=== PATIENT | female | born 1955 | race Caucasian/White ===

== ENCOUNTER 2016-05-03 13:11 | Emergency (ER) | payer OTHER ==
[~2016-05-03 13:11] MED LIST: CIPRO 500MG TA500 MG PO; KEFLEX 250MG C250 MG PO; MELOXICAM15 MG PO; PRILOSEC 20MG C20 MG PO; SENOKOT8.6 MG PO
--- NOTE | 2016-05-03 17:58 | ED UPPER/LOWER EXTREMITY COMPL ---
History of Present Illness General Chief Complaint: Laceration Procedure Stated Complaint: L LEG LAC Source: patient Exam Limitations: no limitations Vital Signs & Intake/Output Vital Signs & Intake/Output Vital Signs Date Time Temp Pulse Resp B/P Pulse O2 O2 Flow FiO2 Ox Delivery Rate 05/03 1820 97 05/03 1818 96.5 55 18 158/79 97 Room Air 05/03 1316 98.4 53 20 158/89 97 Room Air Allergies Coded Allergies: NO KNOWN ALLERGIES (03/09/11) Reconcile Medications Amlodipine Besylate 5 MG TABLET 1 TAB PO DAILY BP (Reported) Aspirin (Ecotrin*) 81 MG TABLET.DR 1 TAB PO DAILY HEART/BLOOD (Reported) Furosemide 20 MG TABLET 1 TAB PO DAILY DIURETIC (Reported) Multivitamin (Multi-Day Vitamins) 1 EACH TABLET 1 TAB PO DAILY SUPPLEMENT ( Reported) Omeprazole 40 MG CAPSULE.DR 1 CAP PO BID GI (Reported) Oxybutynin Chloride (Unknown Strength) TABLET (Unknown Dose) UNKNOWN ( Reported) Paroxetine HCl 20 MG TABLET 1 TAB PO DAILY MENTAL HEALTH (Reported) Triage Note: PT PRESENTS TO ER C/O OF LAC TO LEFT RIVAS. PT STATES SHE GOT HIT IN THE RIVAS WITH THE CAR DOOR. BLEEDING CONTROLLED AT TRIAGE. PT HAS NO FEELING TO LEGS DUE TO NECK INJURY Triage Nurses Notes Reviewed? yes Onset: Abrupt Duration: hour(s):, constant Timing: recent history No Modifying Factors: none HPI: 60-year-old female comes into emergency room for further evaluation of laceration to left lower leg. Her prior to arrival while patient was getting out of the car. Last tetanus shot within the last couple years. Some associated bleeding. 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 Denies any other associated symptoms currently. Denies any pain. Past History Travel History Traveled to [place] past 21 day No Medical History Any Pertinent Medical History? 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 No Review of Systems Review of Systems Constitutional: Reports: no symptoms. EENTM: Reports: no symptoms. Respiratory: Reports: no symptoms. Cardiovascular: Reports: no symptoms. Gastrointestinal/Abdominal: Reports: no symptoms. Genitourinary: Reports: no symptoms. Musculoskeletal: Reports: no symptoms. Skin: Reports: see HPI. Neurological/Psychological: Reports: no symptoms. Hematologic/Endocrine: Reports: no symptoms. Immunological: Reports: no symptoms. All Other Systems: Reviewed and Negative Physical Exam Physical Exam General Appearance: well developed/nourished, mild distress Head: atraumatic Eyes: Bilateral: normal appearance. Ears, Nose, Throat: normal ENT inspection, hearing grossly normal Neck: normal inspection Cardiovascular/Respiratory: no respiratory distress Back: normal inspection Leg Left: 2 inch laceration left lower leg, jagged, gapping Knee Left: normal inspection Foot Left: normal inspection Neurologic/Tendon: no pulse deficit Skin: intact, normal color, warm/dry Lymphatic: no anterior cervical madelin Progress Differential Diagnosis: dislocation, DVT, fracture, gout, septic arthritis, sprain, tendon injury Plan of Care: Patient tolerated procedure well. Dressed with compression wrap. Return 10 days. Return if any other concerns. Departure Departure Disposition: HOME OR SELF CARE Condition: Stable Clinical Impression Primary Impression: Laceration of left lower leg Referrals: GRETA CHAVEZ,GAIL Sánchez (PCP/Family) Additional Instructions: Return in 10 days for suture removal. Watch for signs of infection such as redness bone discharge fever chills. Change dressing every other day. Bacitracin for the first 5-7 days. Dry dressing after that. Make sure you dry the wound after any type of showering. Do not shower for at least 2 days. Please go over all results of today's visit with your primary care doctor. Contact your primary care doctor to let them know you were here in the emergency room. There may be nonspecific findings which may not be related to your visit today here in the emergency room but may require further evaluation and chronic monitoring by your primary care doctor. If you had a laceration today the chance of foreign body always remains. You should follow-up with your primary care doctor for recheck in 3-5 days for a wound check. If you had an x-ray done there is a chance that a fracture could have been missed on initial read and you should follow-up with your primary care doctor for repeat x-rays if symptoms persist. If your blood pressure was elevated here in the emergency room please have rechecked by her primary care doctor within the next 48 hours by your primary care doctor. If you were prescribed a narcotic here in the emergency room or any type of controlled substances you're not allowed to drive while taking this medication or operate any type of heavy machinery. Narcotics can make you feel lightheaded dizziness nausea and can cause constipation. 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 Thank you for choosing [facility] emergency room. Please return to the emergency room immediately if you have any other concerns worsening of symptoms. Departure Forms: Customer Survey General Discharge Information Procedures Laceration/Wound Repair Progress: laceration left lower leg, 2-1/2 inches, jagged, irrigated with copious amounts of saline and Betadine, 3.0 nylon, 7 sutures placed, 1% lidocaine with epi use, patient tolerated procedure well,
[2016-05-03] MEDS ORDERED: AMLODIPINE BESYL5 M1 PO (18:01)
[2016-05-03] MEDS ORDERED: OMEPRAZOLE40 M1 PO (18:01)
[2016-05-03] MEDS ORDERED: FUROSEMIDE20 M1 PO (18:01)
[2016-05-03] MEDS ORDERED: ASPIRIN EC81 M1 PO (18:01)
[2016-05-03] MEDS ORDERED: OXYBUTYNIN CHLOR5 M2 (18:02)
[2016-05-03] MEDS ORDERED: PAROXETINE HCL20 M1 PO (18:02)
[2016-05-03] MEDS ORDERED: MULTI-DAY VITA1 EACH PO (18:03)
[2016-05-03 18:18] VITALS: BP 158/79
== END 2016-05-03 18:20 ==
LOC: ERH 13:11
DX: S81.812A Laceration without foreign body, left lower leg, initial encounter (principal); W22.09XA Striking against other stationary object, initial encounter

== ENCOUNTER 2016-05-13 12:22 | Emergency (ER) | payer OTHER ==
[~2016-05-13] VITALS: Ht 167.6 cm; Wt 79.4 kg
[~2016-05-13 12:22] MED LIST changes: +AMLODIPINE BESYL5 M1 PO; +ASPIRIN EC81 M1 PO; +FUROSEMIDE20 M1 PO; +MULTI-DAY VITA1 EACH PO; +OMEPRAZOLE40 M1 PO; +OXYBUTYNIN CHLOR5 M2; +PAROXETINE HCL20 M1 PO
[2016-05-13 12:33] VITALS: BP 132/78
--- NOTE | 2016-05-13 12:34 | ED ANIMAL BITE/WOUND CHECK ---
History of Present Illness General Chief Complaint: Suture Removal/Wound Recheck Stated Complaint: SUTURE REMOVAL Source: patient, old records Exam Limitations: no limitations Vital Signs & Intake/Output Vital Signs & Intake/Output Vital Signs Date Time Temp Pulse Resp B/P Pulse O2 O2 Flow FiO2 Ox Delivery Rate 05/13 1233 98.1 55 18 132/78 99 Room Air Allergies Coded Allergies: NO KNOWN ALLERGIES (03/09/11) Reconcile Medications Amlodipine Besylate 5 MG TABLET 1 TAB PO DAILY BP (Reported) Aspirin (Ecotrin*) 81 MG TABLET.DR 1 TAB PO DAILY HEART/BLOOD (Reported) Furosemide 20 MG TABLET 1 TAB PO DAILY DIURETIC (Reported) Multivitamin (Multi-Day Vitamins) 1 EACH TABLET 1 TAB PO DAILY SUPPLEMENT ( Reported) Omeprazole 40 MG CAPSULE.DR 1 CAP PO BID GI (Reported) Oxybutynin Chloride (Unknown Strength) TABLET (Unknown Dose) UNKNOWN ( Reported) Paroxetine HCl 20 MG TABLET 1 TAB PO DAILY MENTAL HEALTH (Reported) Triage Note: 60 Y/O FEMALE Triage Nurses Notes Reviewed? yes HPI: 60-year-old female 10 days after a laceration to the left lower leg. She states that there is some mild redness around the wound, she has been applying Neosporin to the area. She is concerned about slow healing in the area and she has had laceration before. There is no fever or significant discharge from the wound. She has no pain or she has neuropathy Past History Travel History Traveled to [place] past 21 day No Medical History Any Pertinent Medical History? 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 No Review of Systems Review of Systems Constitutional: Reports: see HPI. EENTM: Reports: no symptoms. Respiratory: Reports: no symptoms. Cardiovascular: Reports: no symptoms. GI: Reports: no symptoms. Genitourinary: Reports: no symptoms. Musculoskeletal: Reports: no symptoms. Skin: Reports: see HPI. Neurological/Psychological: Reports: no symptoms. Hematologic/Endocrine: Reports: no symptoms. Immunologic/Allergic: Reports: no symptoms. All Other Systems: Reviewed and Negative Physical Exam Physical Exam General Appearance: well developed/nourished Comments: Well-developed well-nourished no apparent distress. HEENT: Atraumatic, extraocular motion intact Neck: Supple, no lymphadenopathy Back: Nontender Respiratory: No respiratory distress Extremities: 1+ BLE edema, left anterior lower leg with a wound that is healing slowly. The skin edges had not quite healed yet. There is a small scab noted around the incision line and minimal erythema and swelling. Scant drainage on [place]. No tenderness. No abscess. Neuro: Alert and oriented x3 Psych: Mood affect normal, normal memory normal judgment. Skin: Warm and dry, no rash on exposed skin Progress Differential Diagnosis: abscess, cellulitis, joint infection, tenosysnovitis Plan of Care: The wound is not right to have all sutures removed at this time. Half the sutures were removed, bacitracin and Telfa dressing was then applied. Vijay wrap was applied. She will return in approximately 5 days for another wound check. Departure Departure Disposition: HOME OR SELF CARE Condition: Stable Clinical Impression Primary Impression: Visit for wound check Referrals: GRETA CHAVEZ,GAIL Sánchez (PCP/Family) Additional Instructions: Return in approximately 5 days for another wound check and removal of the remainder of your sutures. Watch for any signs of infection, redness, swelling, discharge, pain. Return with any concerns Departure Forms: Customer Survey General Discharge Information
== END 2016-05-13 12:37 ==
LOC: ERH 12:22
DX: S81.812A Laceration without foreign body, left lower leg, initial encounter (principal); X58.XXXA Exposure to other specified factors, initial encounter
CPT/HCPCS: 99281

== ENCOUNTER 2016-05-21 11:28 | Emergency (ER) | payer OTHER ==
[~2016-05-21] VITALS: Ht 167.6 cm; Wt 79.4 kg
[2016-05-21 12:02] VITALS: BP 118/70
--- NOTE | 2016-05-21 12:23 | ED SKIN/ALLERGY COMPLAINT ---
History of Present Illness General Chief Complaint: Suture Removal/Wound Recheck Stated Complaint: SUTURE REMOVAL Source: patient Exam Limitations: no limitations Vital Signs & Intake/Output Vital Signs & Intake/Output Vital Signs Date Time Temp Pulse Resp B/P Pulse O2 O2 Flow FiO2 Ox Delivery Rate 05/21 1202 98.1 84 18 118/70 99 Room Air Allergies Coded Allergies: NO KNOWN ALLERGIES (03/09/11) Reconcile Medications Amlodipine Besylate 5 MG TABLET 1 TAB PO DAILY BP (Reported) Aspirin (Ecotrin*) 81 MG TABLET.DR 1 TAB PO DAILY HEART/BLOOD (Reported) Furosemide 20 MG TABLET 1 TAB PO DAILY DIURETIC (Reported) Multivitamin (Multi-Day Vitamins) 1 EACH TABLET 1 TAB PO DAILY SUPPLEMENT ( Reported) Omeprazole 40 MG CAPSULE.DR 1 CAP PO BID GI (Reported) Oxybutynin Chloride (Unknown Strength) TABLET (Unknown Dose) UNKNOWN ( Reported) Paroxetine HCl 20 MG TABLET 1 TAB PO DAILY MENTAL HEALTH (Reported) Triage Note: HERE FOR SUTURE REMOVAL TO LEFT LOWER LEG, (4) Triage Nurses Notes Reviewed? yes HPI: THIS PATIENT is a 60-year-old female who presented to the emergency department today for suture removal. The patient hit her left benitez on the car door. She was here for suture removal proximally 5 days ago, but the wound was not fully healed, so only 3 sutures were removed. 4 sutures remain. She reported some mild discharge from the site. No pain. No fevers or chills. No other signs of infection. (FABIAN BURKS PA-C) Past History Travel History Traveled to [place] past 21 day No Medical History Any Pertinent Medical History? 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 No (FABIAN BURKS PA-C) Review of Systems Review of Systems Constitutional: Reports: no symptoms. EENTM: Reports: no symptoms. Respiratory: Reports: no symptoms. Cardiovascular: Reports: no symptoms. GI: Reports: no symptoms. Genitourinary: Reports: no symptoms. Musculoskeletal: Reports: no symptoms. Skin: Reports: see HPI. All Other Systems: Reviewed and Negative (FABIAN BURKS PA-C) Physical Exam Physical Exam General Appearance: well developed/nourished, no apparent distress, alert, awake Comments: Well-developed well-nourished person in no acute distress HEENT: Head normocephalic, moist mucous membranes Neck: Supple, no lymphadenopathy Back: Normal inspection Respiratory: No respiratory distress. Speaking in full sentences Extremities: No edema, full range of motion Neuro: Alert and oriented x3 Psych: Mood affect normal, normal memory normal judgment. Skin: Warm and dry, no rash on exposed skin. Healing wound to the anterior aspect of the distal left benitez with 4 sutures intact. Mild amount of surrounding erythema with no surrounding edema. No drainage from the wound site. Nontender to palpation (FABIAN BURKS PA-C) Progress Differential Diagnosis: abscess/cellulitis, allergic reaction, LACERATION, SUTURE REMOVAL Plan of Care: This patient is a 60-year-old female who presented for suture removal from her left benitez. Mild amount of surrounding erythema with no surrounding edema. No drainage from the wound site. No fevers or chills. The patient offers no other complaints. I removed 4 sutures from the wound site. Patient is stable for discharge home. (FABIAN BURKS PA-C) Departure Departure Disposition: HOME OR SELF CARE Condition: Stable Clinical Impression Primary Impression: Visit for suture removal Referrals: GRETA CHAVEZ,GAIL Sánchez (PCP/Family) Additional Instructions: CONTINUE TO KEEP THE WOUND SITE CLEAN AND DRY. Follow-up with your primary care physician. Return for any worsening symptoms or signs of infection. Departure Forms: Customer Survey General Discharge Information (FABIAN BURKS PA-C) PA/RESIDENTIAL COORDINATOR Co-Sign Statement Statement: ED Attending supervision documentation- [] I saw and evaluated the patient. I have also reviewed all the pertinent lab results and diagnostic results. I agree with the findings and the plan of care as documented in the PA's/RESIDENTIAL COORDINATOR's documentation. [X] I have reviewed the ED Record and agree with the PA's/RESIDENTIAL COORDINATOR's documentation. [] Additions or exceptions (if any) to the PAs/RESIDENTIAL COORDINATOR's note and plan are summarized below: [] (RONAN CHAVEZ,RAJNI)
== END 2016-05-21 12:32 ==
LOC: ERH 11:28
DX: S81.812A Laceration without foreign body, left lower leg, initial encounter (principal); W22.8XXA Striking against or struck by other objects, initial encounter
CPT/HCPCS: 99281